=== PATIENT | female | born 1995 | race Caucasian/White ===

== ENCOUNTER 2019-04-28 22:52 | Emergency (ER) | payer SELFPAY ==
[~2019-04-28] VITALS: Ht 162.6 cm; Wt 78.0 kg
[2019-04-28 23:26] VITALS: BP 126/70
== END 2019-04-29 00:07 | disposition home or self-care (01) ==
LOC: ER 22:52
DX: R51 Headache (principal)
CPT/HCPCS: 99281

== ENCOUNTER 2019-12-02 12:08 | Emergency (ER) | payer MEDICAID ==
[~2019-12-02] VITALS: Ht 162.6 cm; Wt 98.0 kg
[2019-12-02 12:56] VITALS: BP 106/65
== END 2019-12-02 13:29 | disposition home or self-care (01) ==
LOC: ER 12:08
DX: O22.42 Hemorrhoids in pregnancy, second trimester (principal); Z3A.24 24 weeks gestation of pregnancy
CPT/HCPCS: 99281

== ENCOUNTER 2020-03-02 12:37 | Observation (INO) | payer MEDICAID ==
[~2020-03-02] VITALS: Ht 160 cm; Wt 86.2 kg
[2020-03-02] MEDS ORDERED: ACETAMINOPHEN 500MG TABLET PO NR (15:30)
== END 2020-03-02 15:35 | disposition home or self-care (01) ==
LOC: ER 12:55 → 8 EST LDRP 13:22
PROVIDERS: ADMIT Obstetrics & Gynecology; ATTEND Obstetrics & Gynecology
DX: O36.8130 Decreased fetal movements, third trimester, not applicable or unspecified (principal); O99.513 Diseases of the respiratory system complicating pregnancy, third trimester; O98.513 Other viral diseases complicating pregnancy, third trimester; U07.1 COVID-19; Z3A.36 36 weeks gestation of pregnancy
CPT/HCPCS: 59025; 76815; 76818; 99284; G0378; 99281; 99285

== ENCOUNTER 2020-03-07 14:09 | Inpatient (IN) | payer MEDICAID ==
[~2020-03-07] VITALS: Ht 160 cm; Wt 86.2 kg
[2020-03-07 16:54] LABS: CHLORIDE 110 mEq/L (98-107)
[2020-03-07] MEDS ORDERED: METHYLERGONOVINE MALEATE 0.2 MG/ML IM PRN (17:15)
[2020-03-07] MEDS ORDERED: NALOXONE HCL 0.4 MG/ML 1ML VIAL IM PRN (17:15)
[2020-03-07] MEDS ORDERED: LACTATED RINGERS 1,000 ML IV SCH ×2 (17:15→20:00)
[2020-03-07] MEDS ORDERED: DEXT 5%/LR + PITOCIN 20UNITS/L 1,000 ML IV SCH ×2 (17:15→22:45)
[2020-03-07 17:37] LABS: BASOPHILS % 0.2 % (0.0-2.0); EOSINOPHILS % 0.3 % (0.0-5.0); HEMATOCRIT. 34.2 % (36.0-48.0); HEMOGLOBIN. 11.4 g/dL (12.0-16.0); LYMPHOCYTES % 17.6 % (20.0-50.0); MEAN CORPUSCULAR VOLUME 87.4 fL (81.0-99.0); MONOCYTES % 7.5 % (2.0-8.0); NEUTROPHILS % 74.4 % (40.0-76.0); PLATELET 253 x1000/uL (130-400); RED BLOOD CELL COUNT 3.92 mill/uL (4.2-5.4); RED CELL DISTRIBUTION WIDTH 14.1 % (11.6-14.6)
[2020-03-07 17:44] LABS: INR 0.9; PARTIAL THROMBOPLASTIN TIME 28.1 sec (23.4-31.0); PROTHROMBIN TIME 9.9 sec (9.6-11.0)
[2020-03-07] MEDS ORDERED: GLYCOPYRROLATE 0.2 MG/ML 2ML VIAL ONE (18:13)
[2020-03-07] MEDS ORDERED: MORPHINE SULFATE/PF 1MG/ML 10ML AMP ONE (18:13)
[2020-03-07] MEDS ORDERED: PHENYLEPHRINE HCL 10 MG/ML 1ML (IV VIAL) IV ONE (18:13)
[2020-03-07] MEDS ORDERED: CEFAZOLIN SODIUM 1000MG/VIAL ONE (18:13)
[2020-03-07] MEDS ORDERED: ONDANSETRON HCL 4MG/2ML INJ ONE (18:13)
[2020-03-07] MEDS ORDERED: FENTANYL CITRATE/PF 50MCG/ML 2ML VIAL ONE (18:13)
[2020-03-07] MEDS ORDERED: OXYTOCIN 10 UNITS/ML 1ML ONE (18:13)
[2020-03-07] MEDS ORDERED: METOCLOPRAMIDE HCL 10MG/2ML VIAL ONE (18:13)
[2020-03-07] MEDS ORDERED: EPHEDRINE SULFATE 50MG/ML VIAL ONE (18:13)
[2020-03-07] MEDS ORDERED: KETOROLAC 60MG/2ML VIAL IM ONE (18:14)
[2020-03-07] MEDS ORDERED: DIPHENHYDRAMINE 50MG/ML VIAL ONE (18:14)
[2020-03-07] MEDS ORDERED: CITRIC ACID/SODIUM CITRATE SOLN 30ML UDC PO NR (18:15)
[2020-03-07 18:17] LABS: HEPATITIS B SURFACE ANTIGEN NEGATIVE
[2020-03-07 18:23] LABS: CLARITY URINE CLEAR (CLEAR); COLOR URINE YELLOW (YELLOW); KETONES URINE NEGATIVE (NEGATIVE); LEUKOCYTE ESTERASE URINE NEGATIVE (NEGATIVE); NITRITE URINE NEGATIVE (NEGATIVE); OCCULT BLOOD URINE NEGATIVE (NEGATIVE); PROTEIN URINE NEGATIVE (NEGATIVE); SPECIFIC GRAVITY URINE 1.014 (1.005-1.030)
[2020-03-07 18:35] LABS: *AMPHETAMINES SCREEN URINE NEGATIVE (NEGATIVE); *BARBITURATES SCREEN URINE NEGATIVE (NEGATIVE); *BENZODIAZEPINES SCREEN URINE NEGATIVE (NEGATIVE); *COCAINE SCREEN URINE NEGATIVE (NEGATIVE)
[2020-03-07 18:36] LABS: CANNABINOID URINE SCREEN NEGATIVE (NEGATIVE); METHADONE URINE SCREEN NEGATIVE (NEGATIVE); OPIATES URINE SCREEN NEGATIVE (NEGATIVE); PHENCYCLIDINE URINE SCREEN NEGATIVE (NEGATIVE)
[2020-03-07] MEDS ORDERED: DIPHENHYDRAMINE 50MG/ML VIAL IV PRN (21:45)
[2020-03-07] MEDS ORDERED: BUTORPHANOL TARTRATE 2 MG/ML VIAL IV PRN (21:45)
[2020-03-07] MEDS ORDERED: KETOROLAC 30MG/ML VIAL IV SCH (21:50)
[2020-03-07] MEDS ORDERED: NALOXONE HCL 0.4 MG/ML 1ML VIAL IV PRN (22:00)
[2020-03-07] MEDS ORDERED: HEMORRHOIDAL SUPP PR PRN (22:45)
[2020-03-07] MEDS ORDERED: BISACODYL 10MG SUPP PR PRN (22:45)
[2020-03-07] MEDS ORDERED: LANOLIN OINT 7GM TUBE TOP PRN (22:45)
[2020-03-07] MEDS ORDERED: ONDANSETRON HCL 4MG/2ML INJ IV PRN (22:45)
[2020-03-07] MEDS ORDERED: DIPHENHYDRAMINE 25MG CAPSULE PO PRN (22:45)
[2020-03-07] MEDS ORDERED: IBUPROFEN 400MG TABLET PO PRN (22:45)
[2020-03-08] VITALS (7 sets, daily range): BP systolic 101–118; BP diastolic 56–70
[2020-03-08] MEDS ORDERED: AZIT250T12 PO (02:17)
[2020-03-08] MEDS ORDERED: PRENATAL VITAMINS (02:17)
[2020-03-08] MEDS ORDERED: FERR325T6 PO (02:17)
[2020-03-08] MEDS ORDERED: KETOROLAC 30MG/ML VIAL IV SCH (04:00)
[2020-03-08] MEDS ORDERED: BUTORPHANOL TARTRATE 2 MG/ML VIAL IV PRN (04:00)
[2020-03-08] MEDS ORDERED: DIPHENHYDRAMINE 50MG/ML VIAL IV PRN (04:00)
[2020-03-08] MEDS: MAGNESIUM/ALUMINUM HYDROXIDE/SIMETHICONE 30ML UDC PO SCH ×4 (07:10→23:54)
[2020-03-08 07:24] LABS: BASOPHILS % 0.1 % (0.0-2.0); EOSINOPHILS % 0.5 % (0.0-5.0); HEMOGLOBIN. 11.4 g/dL (12.0-16.0); LYMPHOCYTES % 15.5 % (20.0-50.0); MEAN CORPUSCULAR HEMOGLOBIN 29.5 pg (28.0-32.0); MEAN PLATELET VOLUME 8.6 fl (7.4-10.4); MONOCYTES % 5.8 % (2.0-8.0); NEUTROPHILS % 78.1 % (40.0-76.0); PLATELET 225 x1000/uL (130-400); RED BLOOD CELL COUNT 3.87 mill/uL (4.2-5.4); RED CELL DISTRIBUTION WIDTH 14.1 % (11.6-14.6)
[2020-03-08] MEDS: SIMETHICONE 80MG TABLET CHEW PO SCH ×4 (08:49→23:54)
[2020-03-08] MEDS: IBUPROFEN 800MG TABLET PO PRN ×2 (11:36→17:32)
[2020-03-08] MEDS: FERROUS SULFATE 325MG TABLET PO SCH ×2 (13:26→17:10)
[2020-03-08] MEDS: PRENATAL VIT/FE FUMARATE/FA TABLET PO SCH (13:26)
[2020-03-08] MEDS: HYDROCODONE/ACETAMINOPHEN 5/325MG TABLET PO PRN ×2 (16:27→20:58)
[2020-03-08] MEDS: DOCUSATE SODIUM 100MG CAPSULE PO SCH (23:54)
[2020-03-09 04:30] VITALS: BP 112/70
[2020-03-09] MEDS: IBUPROFEN 800MG TABLET PO PRN ×3 (04:38→21:21)
[2020-03-09 07:45] VITALS: BP 114/72
[2020-03-09] MEDS: PRENATAL VIT/FE FUMARATE/FA TABLET PO SCH (08:50)
[2020-03-09] MEDS: MAGNESIUM/ALUMINUM HYDROXIDE/SIMETHICONE 30ML UDC PO SCH ×3 (08:50→21:20)
[2020-03-09] MEDS: FERROUS SULFATE 325MG TABLET PO SCH ×2 (08:50→15:21)
[2020-03-09] MEDS: SIMETHICONE 80MG TABLET CHEW PO SCH ×3 (08:51→21:22)
[2020-03-09 16:30] VITALS: BP 108/67
[2020-03-09 19:40] VITALS: BP 113/70
[2020-03-09] MEDS: DOCUSATE SODIUM 100MG CAPSULE PO SCH (21:21)
[2020-03-10] VITALS: BP 115/72
[2020-03-10 04:00] VITALS: BP 114/71
[2020-03-10] MEDS: IBUPROFEN 800MG TABLET PO PRN (05:48)
[2020-03-10 08:00] VITALS: BP 113/68
== END 2020-03-10 14:00 | disposition home or self-care (01) | DRG 540 ==
LOC: L&D 14:09 → OBSVTOIN 14:09 → 8EST 03-08 21:15
PROVIDERS: ADMIT Obstetrics & Gynecology; ATTEND Obstetrics & Gynecology
PROC: 10D00Z1 Extraction of Products of Conception, Low, Open Approach (ICD-10-PCS; principal; 2020-03-07)
PROC: 0UB70ZZ Excision of Bilateral Fallopian Tubes, Open Approach (ICD-10-PCS; 2020-03-07)
DX: O34.211 Maternal care for low transverse scar from previous cesarean delivery (principal); O26.62 Liver and biliary tract disorders in childbirth; K83.1 Obstruction of bile duct; Z20.822 Contact with and (suspected) exposure to COVID-19; Z3A.37 37 weeks gestation of pregnancy; Z37.0 Single live birth; Z30.2 Encounter for sterilization
CPT/HCPCS: 36415; 80053; 80305; 81003; 82239; 85025; 86592; 86703; 86762; 86850; 86900; 87340; 87426; 88307; 99281; J0595; J0690; J1200; J1885; J2274; J2370; J2405; J2590; J2765; J3010; J3490; J7120; A4315